=== PATIENT | male | born 1990 | race Hispanic/Latino ===

== ENCOUNTER 2020-12-09 12:45 | Emergency (ER) | payer SELFPAY ==
--- NOTE | 2020-12-09 13:36 | XRay Report ---
HISTORY:right foot pain COMPARISON: None. TECHNIQUE: AP lateral and obliques views were obtained FINDINGS: Bones: No fracture or dislocation. Joint spaces: Maintained. Soft tissues: No significant abnormality. Additional findings: None. IMPRESSION: 1. No significant abnormality. Signer Name: Brian Boyle MD Signed: 12/09/2020 1:31 PM Workstation Name: [id number]
--- NOTE | 2020-12-09 14:10 | Emergency Department Report ---
ED Lower Extremity HPI - General Chief Complaint: Extremity Injury, Lower Stated Complaint: INJ RT FOOT X 2 WKS Time Seen by Provider: 12/09/20 12:58 Source: patient Mode of arrival: Wheelchair Limitations: No Limitations - History of Present Illness Initial Comments: pt is a 30 yo male who presents to the ED with c/o "right broken foot" that occurred two weeks ago. he was seen at [facility] two weeks ago and he was advised that he had a "broken foot" he states that he was placed in a splint and given crutches. he removed the splint and is currently ambulating without crutches. He states he "needed to get around better." he denies any numbness or weakness. no pmhx. no allergies to meds. - Related Data Previous Rx's Medication Instructions Recorded Last Taken Type Naproxen [EC-Naprosyn] 500 mg PO BID PRN #14 tablet. 12/09/20 Unknown Rx Allergies Allergy/AdvReac Type Severity Reaction Status Date / Time No Known Allergies Allergy Unverified 12/09/20 12:56 ED Review of Systems ROS: Stated complaint: INJ RT FOOT X 2 WKS Other details as noted in HPI Comment: All other systems reviewed and negative ED Past Medical Hx - Past Medical History Previous Medical History?: No - Surgical History Past Surgical History?: No - Medications Home Medications: Home Medications Medication Instructions Recorded Confirmed Last Taken Type Naproxen [EC-Naprosyn] 500 mg PO BID PRN #14 tablet. 12/09/20 Unknown Rx ED Physical Exam - General Limitations: No Limitations General appearance: alert, in no apparent distress - Head Head exam: Present: atraumatic, normocephalic - Eye Eye exam: Present: normal appearance - ENT ENT exam: Present: mucous membranes moist - Respiratory Respiratory exam: Absent: respiratory distress, accessory muscle use - Extremities Exam Extremities exam: Present: other (right dorsal foot ttp and swelling present to the right dorsal foot, no erythema, no skin changes, FROM of th RLE with pain upon flexion of the right foot, neurovascularly intact) - Neurological Exam Neurological exam: Present: alert, oriented X3 - Psychiatric Psychiatric exam: Present: normal affect, normal mood - Skin Skin exam: Present: warm, dry, intact ED Course Vital Signs 12/09/20 12/09/20 12:55 14:31 Temperature 98.5 F Pulse Rate 88 90 Respiratory 16 18 Rate Blood Pressure 170/100 152/83 [Right] O2 Sat by Pulse 99 97 Oximetry ED Lower Extremity MDM - Lab Data Vital Signs 12/09/20 12/09/20 12:55 14:31 Temperature 98.5 F Pulse Rate 88 90 Respiratory 16 18 Rate Blood Pressure 170/100 152/83 [Right] O2 Sat by Pulse 99 97 Oximetry - Radiology Data Radiology results: report reviewed Ordering Physician: GERALD CHINO Date of Service: 12/09/20 Procedure(s): XR foot 3+V RT Accession Number(s): [id number] cc: GERALD CHINO Fluoro Time In Minutes: HISTORY:right foot pain COMPARISON: None. TECHNIQUE: AP lateral and obliques views were obtained FINDINGS: Bones: No fracture or dislocation. Joint spaces: Maintained. Soft tissues: No significant abnormality. Additional findings: None. IMPRESSION: 1. No significant abnormality. Signer Name: Brian Boyle MD Signed: 12/09/2020 1:31 PM Workstation Name: [id number] Transcribed By: TATY Dictated By: Brian Boyle MD Electronically Authenticated By: Brian Boyle MD Signed Date/Time: 12/09/20 133 DD/ 133 TD/TT: - Medical Decision Making pt is a 30 yo male who presents to the ED with c/o "right broken foot" that occurred two weeks ago. he was seen at [facility] two weeks ago and he was advised that he had a "broken foot" he states that he was placed in a splint and given crutches. he removed the splint and is currently ambulating without crutches. He states he "needed to get around better." he denies any numbness or weakness. no pmhx. no allergies to meds. Initial vitals with elevated blood pressure which improved upon repeat. On exam: right dorsal foot ttp and swelling present to the right dorsal foot, no erythema, no skin changes, FROM of th RLE with pain upon flexion of the right foot, neurovascularly intact. X-ray right foot 1. No significant abnormality. Symptoms likely related to foot sprain. Patient placed in a postop shoe and given crutches and discussed the importance of orthopedic follow-up. Patient given prescription for naproxen. Patient is requesting narcotics, I advised patient that we do not refill narcotics in the emergency department. Advised patient please take medication as prescribed. may ice for 15 minutes at a time, elevation of the leg. do not bear weight on the foot. follow up with an orthopedic doctor. return to the emergency room for any new or worsening symptoms. Critical care attestation.: If time is entered above; I have spent that time in minutes in the direct care of this critically ill patient, excluding procedure time. ED Disposition Clinical Impression: Right foot pain, Swelling of right foot Disposition: TO HOME OR SELFCARE Is pt being admited?: No Does the pt Need Aspirin: No Condition: Stable Instructions: Foot Sprain, Foot Pain Additional Instructions: please take medication as prescribed. may ice for 15 minutes at a time, elevation of the leg. do not bear weight on the foot. follow up with an orthopedic doctor. return to the emergency room for any new or worsening symptoms. Prescriptions: Naproxen [EC-Naprosyn] 500 mg PO BID PRN #14 tablet.dr CANALES Reason: pain Referrals: CRISTHIAN WYATT MD [Staff Physician] - 2-3 Days [facility] [Provider Group] - 2-3 Days Time of Disposition: 14:10 Print Language: NEPALESE
[2020-12-09 14:32] VITALS: BP 152/83
== END 2020-12-09 15:06 | disposition home or self-care (01) ==
LOC: ED 12:45
DX: M79.671 Pain in right foot (principal); M79.89 Other specified soft tissue disorders; Z79.899 Other long term (current) drug therapy

== ENCOUNTER 2021-01-03 23:24 | Emergency (ER) | payer SELFPAY ==
[2021-01-03 23:57] VITALS: BP 178/74
[2021-01-04] MEDS ORDERED: KETOROLAC 10 MG TAB PO ONE (00:03)
--- NOTE | 2021-01-04 00:12 | Emergency Department Report ---
ED General Adult HPI - General Chief complaint: Extremity Injury, Lower Stated complaint: FOOT PAIN Time Seen by Provider: 01/04/21 00:03 Source: patient Mode of arrival: Ambulatory Limitations: No Limitations - History of Present Illness Initial comments: 30 yo M pt presents for refills of his oxycodone medication today. He reports he had surgery on his foot 2 weeks ago and has an appointment with his surgeon in 3 days. PT also states he went to [facility] 2 days ago and was given a Rx for 12 oxycodone, which he states he has run out of in 2 days. He denies any sudden worsening of pain, new swelling/redness, drainage, or fever/chills/sweats. - Related Data Previous Rx's Medication Instructions Recorded Last Taken Type Naproxen [EC-Naprosyn] 500 mg PO BID PRN #14 tablet. 12/09/20 Unknown Rx Allergies Allergy/AdvReac Type Severity Reaction Status Date / Time No Known Allergies Allergy Unverified 12/09/20 12:56 ED Review of Systems ROS: Stated complaint: FOOT PAIN Other details as noted in HPI Constitutional: denies: chills, fever, malaise Musculoskeletal: arthralgia Skin: denies: change in color Neurological: denies: numbness ED Past Medical Hx - Past Medical History Previous Medical History?: No - Surgical History Past Surgical History?: Yes Additional Surgical History: right foot - Social History Smoking Status: Light Tobacco Smoker Substance Use Type: Alcohol, Marijuana, Methamphetamines - Medications Home Medications: Home Medications Medication Instructions Recorded Confirmed Last Taken Type Naproxen [EC-Naprosyn] 500 mg PO BID PRN #14 tablet. 12/09/20 Unknown Rx ED Physical Exam - General Limitations: No Limitations General appearance: alert, in no apparent distress - Head Head exam: Present: atraumatic, normocephalic - Respiratory Respiratory exam: Absent: respiratory distress - Cardiovascular Cardiovascular Exam: Present: regular rate - Extremities Exam Extremities exam: Present: other (right foot noted to be in open toe cast-no visible erythema noted. Normal capillary refill noted to toes) - Neurological Exam Neurological exam: Present: alert, oriented X3 - Psychiatric Psychiatric exam: Present: normal affect, other (pt appears to be intoxicated ) - Skin Skin exam: Present: warm, dry, normal color. Absent: cyanosis, diaphoretic ED Course Vital Signs 01/03/21 23:55 Temperature 98.6 F Pulse Rate 84 Respiratory 17 Rate Blood Pressure 178/74 O2 Sat by Pulse 87 Oximetry ED Medical Decision Making - Medical Decision Making 30 yo M pt presents for refills of his oxycodone medication today. He reports he had surgery on his foot 2 weeks ago and has an appointment with his surgeon in 3 days. PT also states he went to [facility] 2 days ago and was given a Rx for 12 oxycodone, which he states he has run out of in 2 days. He denies any sudden worsening of pain, new swelling/redness, drainage, or fever/chills/sweats. Pt informed to follow up with his orthopedic surgeon for refills of his oxycodon e. His vitals are stable, he is well-appearing, and he is stable for d/c home. Critical care attestation.: If time is entered above; I have spent that time in minutes in the direct care of this critically ill patient, excluding procedure time. ED Disposition Clinical Impression: Encounter for medication refill Disposition: DC-01 TO HOME OR SELFCARE Is pt being admited?: No Condition: Stable Additional Instructions: Please follow up with your orthopedic surgeon at [facility] for refills of your pain medication
== END 2021-01-04 00:46 | disposition home or self-care (01) ==
LOC: ED 23:24
DX: F17.200 Nicotine dependence, unspecified, uncomplicated (principal); F12.90 Cannabis use, unspecified, uncomplicated; F15.90 Other stimulant use, unspecified, uncomplicated; Z76.0 Encounter for issue of repeat prescription; Z79.899 Other long term (current) drug therapy